=== PATIENT | male | born 1955 | race Caucasian/White ===

== ENCOUNTER → 2017-03-27 | Outpatient (CLI) | payer BC ==
--- NOTE | ~2017-03-27 | US84 ---
[id number] [facility]. [facility] [address]. [place], [place] [address] [id number] O MR#: [id number] Acc #: [id number] NAME: SANIA MORENO : 1955 SEX: M STUDY DATE/TIME: 03/27/2017 14:45 UNIT: [facility] ROOM: STUDY DESCRIPTION: US LE Veins Complete Trino Stdy Attending Physician: Geo Butler M.D. Referring Physician: Geo Butler M.D. Ordering Physician: Geo Butler M.D. Primary Care Physician: Geo Butler M.D. MEDICAL IMAGING REPORT This report is preliminary unless electronic signature is present DATE OF EXAM 03/27/2017 REASON FOR EXAM Lower extremity edema. EXAM Bilateral lower extremity venous Doppler. FINDINGS The right common femoral vein, femoral vein, popliteal veins and tibial veins demonstrate patency and compressibility. There is phasic and spontaneous flow with respiration and augmentation. Proximal and distal greater saphenous vein is patent and compressible. The left common femoral vein, femoral vein, popliteal vein, tibial veins demonstrate patency and compressibility. There is phasic and spontaneous flow with respiration and augmentation. Proximal distal saphenous vein is patent and compressible. IMPRESSION No evidence of either right or left lower extremity deep vein thrombosis. Dictated by... Neftali Calixto M.D. THIS IS AN ELECTRONICALLY VERIFIED REPORT Neftali Calixto M.D. at 03/30/2017 6:33 AM Erica TD: 03/28/2017 00:22 JOB #: [id number] MEDICAL IMAGING REPORT Page 1 of 1 COPY
[2017-03-27 14:50] LABS: BASOPHIL# 0.2 X10e3 (0-0.3); BASOPHIL% 3.2 % (0-2.5); DIFF IND NO; EOSINOPHIL# 0.2 X10e3 (0-0.7); EOSINOPHIL% 2.8 % (0.0-7.0); HEMATOCRIT 45.7 % (38.0-50.0); HEMOGLOBIN 15.5 gm/dL (13.0-16.0); LYMPHOCYTE# 0.8 X10e3 (1.0-3.5); LYMPHOCYTE% 12.3 % (17.0-45.0); MEAN CELL VOLUME 95.7 FL (83-96); MEAN CORPUSCULAR HEMOGLOBIN 32.4 PG (28-34); MEAN CORPUSCULAR HGB CONC 33.8 g/dL (30-36); MONOCYTE# 0.8 X10e3 (0-1.0); MONOCYTE% 11.4 % (3.0-12.0); NEUTROPHIL# 4.8 X10e3 (1.5-7.1); NEUTROPHIL% 70.3 % (40-75); PLATELET COUNT 160 X10e3 (140-420); RED BLOOD COUNT 4.78 X10e (3.90-5.60); RED CELL DISTRIBUTION WIDTH 12.7 % (11.0-15.5); WHITE BLOOD COUNT 6.8 X10e3 (4.0-10.5)
[2017-03-27 15:20] LABS: THYROID STIMULATING HORMONE 0.4 uIU/ml (0.34-5.60)
[2017-03-27 15:24] LABS: FREE T3 3.1 pg/mL (2.5-3.9)
[2017-03-27 15:26] LABS: FREE THYROXIN (T4) 0.58 ng/dL (0.58-1.64)
[2017-03-27 15:27] LABS: ALBUMIN SERUM 4.4 g/dL (3.5-5.0); BILIRUBIN,TOTAL 0.8 mg/dL (0.2-2.0); BUN/CREATININE RATIO 12.22; CALCIUM SERUM 8.8 mg/dL (8.4-10.2); CREATININE SERUM 0.9 mg/dL (0.6-1.4); GLOM FILT RATE Estimated 91.9 mL/min (>60); MAGNESIUM 2.2 mg/dL (1.6-3.0); POTASSIUM 4.7 mmol/L (3.5-5.1); PROTEIN TOTAL SERUM 7.3 g/dL (6.0-8.3)
== END | disposition home or self-care (01) ==
LOC: CNIV 14:00
DX: R60.9 Edema, unspecified (principal); Z95.1 Presence of aortocoronary bypass graft
CPT/HCPCS: 36415; 80053; 80061; 83036; 83735; 84439; 84443; 84481; 85025; 93970